=== PATIENT | female | born 2000 | race Caucasian/White ===

== ENCOUNTER 2022-07-07 23:45 | Emergency (ER) | payer BC, OTHER ==
[~2022-07-07] VITALS: Ht 157.5 cm; Wt 53.5 kg
[~2022-07-07 23:45] MED LIST: AMOX500C2
[2022-07-08] MEDS ORDERED: KETOROLAC TROMETHAMINE 15 MG INJ IVP ONE (00:30)
[2022-07-08 00:57] LABS: CARBON DIOXIDE 25 mmol/L (21-32); CHLORIDE 104 mmol/L (98-107); CREATININE 0.8 mg/dL (0.6-1.3); GLUCOSE 89 mg/dL (74-106); POTASSIUM 3.4 mmol/L (3.5-5.1); UREA NITROGEN, BLOOD 14 mg/dL (7-18)
--- NOTE | 2022-07-08 01:04 | NUR ---
pt in room 4a c/o chest pain for 3 hours hx of asthma and hernia.
[2022-07-08 01:09] LABS: HEMATOCRIT 35.8 % (31.2-41.9); MEAN CORPUSCULAR HEMOGLOBIN 30.5 uug (24.7-32.8); MEAN CORPUSCULAR VOLUME 87.7 fL (75.5-95.3); PLATELET COUNT (AUTO) 225 K/uL (179-408)
[2022-07-08] MEDS ORDERED: PANTOPRAZOLE SODIUM 40 MG VIAL ONE (01:12)
[2022-07-08] MEDS ORDERED: MAG HYDROX/AL HYDROX/SIMETH 30 ML LIQUID UDC ONE (01:12)
[2022-07-08] MEDS ORDERED: KETOROLAC TROMETHAMINE 15 MG INJ ONE (01:12)
[2022-07-08] MEDS ORDERED: MAG HYDROX/AL HYDROX/SIMETH 30 ML LIQUID UDC PO ONE (01:15)
[2022-07-08] MEDS ORDERED: PANTOPRAZOLE SODIUM 40 MG VIAL IV ONE (01:15)
[2022-07-08 02:11] LABS: *URINE HCG, QUAL NEGATIVE (NEGATIVE)
[2022-07-08] MEDS ORDERED: LORAZEPAM 0.5 MG TABLET ONE (02:21)
[2022-07-08] MEDS ORDERED: LORAZEPAM 0.5 MG TABLET PO ONE (02:30)
[2022-07-08] MEDS ORDERED: METHOCARBAMOL 500 MG TABLET PO ONE (02:45)
[2022-07-08] MEDS ORDERED: METHOCARBAMOL 500 MG TABLET ONE (03:03)
[2022-07-08 03:05] VITALS: BP 130/70
--- NOTE | 2022-07-08 03:05 | NUR ---
Patient discharged to home in stable condition. Written and verbal after care instructions given. Patient verbalizes understanding of instructions. Stressed follow up or return to ER for worsening s/s.
== END 2022-07-08 03:10 | disposition home or self-care (01) ==
LOC: ER 23:45
DX: R07.89 Other chest pain (principal); R11.0 Nausea; J45.990 Exercise induced bronchospasm
CPT/HCPCS: 99285; 96374; 71045; 96375; 80048; 84703; 85025; 84484; 36415; 93005; J1885; C9113; A4663